=== PATIENT | female | born 1980 | race Caucasian/White ===

== ENCOUNTER 2021-11-01 14:56 | Emergency (ER) | payer OTHER, SELFPAY ==
--- NOTE | 2021-11-01 15:23 | ED.GENADULT ---
HPI - General Adult General Stated complaint: CRISIS Time Seen by Provider: 11/01/21 15:01 Source: patient and EMS Mode of arrival: EMS Limitations: no limitations History of Present Illness HPI narrative: Patient comes to the emergency room via EMS for crisis. EMS Reports that the patient was at a crisis office for a regular visit, patient insisted that she needed to smoke, she was told that she could not smoke inside of the building or leave to smoke. Patient started becoming verbally abusive, angry, EMS was called and they were instructed to bring the patient to the emergency room. Patient is not suicidal or homicidal. Patient is not on a Section 12. Patient requesting to see [facility] to help her relocate to a different living facility. Review of Systems Review of Systems: Constitutional : No Weight loss, No Fever, No Chills, No Night Sweats, No Fatigue, No Malaise ENT/Mouth : No Hearing loss, No Ear Pain, No Nasal Congestion, No Sinus Pain, No Hoarseness, No sore throat, No Rhinorrhea, No Swallowing Difficulty Eyes: No Eye Pain, No Swelling, No Redness, No Foreign Body, No Discharge, No Vision Changes Cardiovascular : No Chest Pain, No SOB, No Dyspnea on Exertion, No Orthopnea, No Edema, No Palpitations Respiratory : No Cough, No Sputum, No Wheezing, No Smoke Exposure, No Dyspnea Gastrointestinal : No Nausea, No Vomiting, No Diarrhea, No Constipation, No abdominal Pain, No Hematochezia, No Melena Genitourinary : no irregular bleeding, No Dysuria, No Urinary Frequency, No Hematuria, No Urinary Incontinence, No Urgency, No Flank Pain, No Urinary Flow Changes, No Hesitancy Musculoskeletal : No joint pain, No Myalgias, No Joint Swelling Skin : No Skin Lesions, No rash Neuro : No Weakness, No Numbness, No Paresthesias, No Loss of Consciousness, No Dizziness, No Headache Psych : Very angry because she was brought to the emergency room Heme/Lymph: No Bruising, No Bleeding,No Lymphadenopathy Endocrine : No Polyuria, No Polydipsia, No Temperature Intolerance PMFSH Social History Social History Advance Directives: No Advance Directives Information Provided: No Physical Exam ED Const Other: Appearance: Alert. Oriented X3. Eyes: Pupils equal, round and reactive to light. ENT: Pharynx normal. Neck: Normal inspection. Neck supple. No lymph nodes noted. No crepitus CVS: Normal heart rate and rhythm. Pulses normal. Normal S1 and S2 Respiratory: No respiratory distress. Breath sounds normal. No Wheezing. No rales Abdomen: Soft and nontender. No rigidity. No distention. Skin: Skin warm and dry. Normal skin color. Normal skin turgor. Extremities: No lower extremity edema. No Lacerations. No Rash Neuro: Oriented X 3. No motor deficit. No sensory deficit. Moving all extremities. No slurred speech. CN 2 through 12 grossly intact Psych: Angry, yelling, uncooperative Course Course Course Narrative: Patient requested to be seen by [facility]. We discussed with the patient and security that she needs to policy change clerk hospital clothes and also security needs to go through her belongings. Patient refused, started yelling, when security inform the patient that they need to go to her belongings. Patient decided to leave. Patient is not suicidal, not homicidal, alert and oriented x4. Patient eloped Discharge Plan Discharge Clinical Impression: Anxiety Patient Disposition: Elopement Instructions: Anxiety (ED) Additional Instructions: Please follow-up with your primary care physician tomorrow. If you have any worsening or new symptoms, please return to the emergency room or call 911
[2021-11-01 15:39] VITALS: BP 134/90; PULSE 93; O2SAT 99; BMI 65.2
== END 2021-11-01 15:48 | disposition left against medical advice (07) ==
PROVIDERS: Emergency Provider Emergency Medicine
DX: F41.9 Anxiety disorder, unspecified (principal); R45.1 Restlessness and agitation
CPT/HCPCS: 99282